=== PATIENT | male | born 1985 | race Two or more races ===

== ENCOUNTER 2017-08-15 11:51 | Outpatient (CLI) | payer BC ==
--- NOTE | 2017-08-15 15:08 | Diagnostic Imaging Report ---
Indication: TB SCREEN Technique: One view of the chest Comparison: none Findings: There is a calcified granuloma at the right lung base. Lungs and pleural spaces are otherwise clear. Heart size is normal. Impression: No acute process Evidence of old granulomatous disease
== END 2017-08-15 13:51 | disposition home or self-care (01) ==
LOC: RAD 11:51
DX: Z11.1 Encounter for screening for respiratory tuberculosis (principal)
CPT/HCPCS: 71010